=== PATIENT | female | born 1955 ===

== ENCOUNTER 2018-05-19 11:15 | Outpatient (CLI) | payer OTHER | END 2018-05-19 11:16 | disposition home or self-care (01) | LOC: BICRAD 11:15 | PROVIDERS: ATTEND Internal Medicine | DX: Z02.79 Encounter for issue of other medical certificate (principal); M47.896 Other spondylosis, lumbar region; S32.011A Stable burst fracture of first lumbar vertebra, initial encounter for closed fracture | CPT/HCPCS: 71046; 72100 ==